=== PATIENT | male | born 1945 | race Caucasian/White ===

== ENCOUNTER → 2016-06-02 | Day surgery (SDC) | payer MEDICARE ==
[~2016-06-02] VITALS: Ht 177.8 cm; Wt 93.0 kg
[~2016-06-02] MED LIST: BUPIVACAINE/EPIN 0.25% 30 ML VIAL As Ordered ONE; BUPIVACAINE/EPIN 0.25% 30 ML VIAL XX ONE; FLOM5CAP PO; GLYCOPYRROLATE INJ 0.2 MG/ML 2 ML VIAL As Ordered ONE; JANU100T PO; KETOROLAC 60 MG/2 ML VIAL (J1885) As Ordered ONE; LEVO50TA5 PO; LIDOCAINE 2% INJ 100 MG/5 ML SDV (FOR ANES.) As Ordered ONE; LISI10TA4 PO; LR 1,000 ML IV SCH; LevoFLOXacin 500 MG in APPROPRIATE DILUENT 1 EA IV ONE; METF500T4 PO; METOCLOPRAMIDE INJ 10MG/2ML VIAL (J2765) As Ordered ONE; MIDAZOLAM INJ 2 MG/2 ML VIAL (J2250) As Ordered ONE; MORPHINE 10 MG/ML 1ML VIAL IV PRN; MORPHINE 2 MG/ML 1ML SYRINGE IV PRN; NEOSTIGMINE 1MG/ML 5 ML SYRINGE (J2710) As Ordered ONE; NORCO, ANEXSIA 5/325MG TABLET (HYDROcodone/ACETAMINOPHEN) As Ordered ONE; NORCO, ANEXSIA 5/325MG TABLET (HYDROcodone/ACETAMINOPHEN) PO PRN; ONDANSETRON 4MG/2ML VIAL (J2405) As Ordered ONE; ONDANSETRON 4MG/2ML VIAL (J2405) IV PRN; PRIL20CA9 PO; PROPOFOL 200 MG/20 ML VIAL As Ordered ONE; ROCURONIUM BROMIDE 50 MG/5 ML VIAL As Ordered ONE; fentaNYL 100 MCG/2 ML INJECTION (J3010) As Ordered ONE; fentaNYL 100 MCG/2 ML INJECTION (J3010) IV PRN; fentaNYL 250 MCG/5 ML INJECTION (J3010) As Ordered ONE
--- NOTE | 2016-06-02 11:55 | RO ---
DATE OF PROCEDURE: 06/01/2016 PREPROCEDURE DIAGNOSIS: Left inguinal hernia. POSTPROCEDURE DIAGNOSIS: Indirect left inguinal hernia. PROCEDURE: Laparoscopic left inguinal hernia repair with 3D Max mesh (TEP). SURGEON: Dr. José Antonio Powers. EYEGLASS MAKER: ANESTHESIA: General endotracheal anesthesia. ESTIMATED BLOOD LOSS: Minimal. FLUIDS: Crystalloid. DESCRIPTION OF PROCEDURE: The patient was brought to the operating room and was given general anesthesia. After adequate anesthesia and preoperative antibiotics were given the patient was prepped and draped in the usual sterile fashion. Next, a periumbilical incision was made with the skin knife. Blunt dissection was carried down to the fascia. The fascia was incised longitudinally with electrocautery and then finger palliation posterior to the rectus muscle was performed on the rectums muscle fascia using blunt dissection. The balloon dissector was placed in the preperitoneal space and dilated under direct visualization. The epigastric were seen up bilaterally. Then the stationary balloon was placed inferior to the umbilicus. Next, the posterior aspect of the pubis was dissected out with the hook cautery revealing the posterior aspect of the pubis as well as Tai's on the left-hand side. The dissection lateral to the epigastric was performed using hook cautery up to the cord structures. The hernia was appreciated going down into the cord structures and this was grasped and mobilized of all surrounding structures. Eventually, the peritoneum was mobilized quite nicely in this area and eventually, it was mobilized off the cord structures medially as well as posteriorly where the vas dove down into the pelvis. This is where the peritoneum was followed. A good window/valley between the vessels and the bladder was created using hook cautery along this lose areolar plane and then a 3D Max mesh, medium was placed in the left inguinal area and tacked in a the Tai's ligament medially and the lateral border of pubis as well as the tail of the mesh and inferiorly along the rectus muscle. The preperitoneal space was desufflated under direct visualization revealing good hemostasis. Revealed the peritoneum in the appropriate position. All trocars were removed under direct visualization. 0 Vicryl was used to close the fascia at the umbilicus and #4-0 Vicryl was used to close the skin. Steri-Strips and a dry sterile dressing was applied and the patient was awakened and extubated, brought to the recovery room awake, alert, and hemodynamically stable. Sponge and needle counts were correct times two.
[2016-06-02 12:45] VITALS: BP 122/67
--- NOTE | 2016-06-03 23:01 | ECGEPIP ---
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
== END | disposition home or self-care (01) ==
LOC: M SDC 06:16
PROVIDERS: ATTEND Surgery
DX: K40.90 Unilateral inguinal hernia, without obstruction or gangrene, not specified as recurrent (principal); E11.9 Type 2 diabetes mellitus without complications; I10 Essential (primary) hypertension; E78.00 Pure hypercholesterolemia, unspecified; E03.9 Hypothyroidism, unspecified; K21.9 Gastro-esophageal reflux disease without esophagitis; M12.9 Arthropathy, unspecified; G47.33 Obstructive sleep apnea (adult) (pediatric); N40.0 Benign prostatic hyperplasia without lower urinary tract symptoms; Z88.1 Allergy status to other antibiotic agents; Z79.899 Other long term (current) drug therapy
CPT/HCPCS: 49650; 93005; C1781; J1885; J1956; J2250; J2405; J2710; J2765; J3010

== ENCOUNTER 2018-03-10 06:54 | Day surgery (SDC) | payer MEDICARE ==
[2018-03-10] MEDS ORDERED: NS 1,000 ML IV (07:30)
[2018-03-10] MEDS ORDERED: LIDOCAINE 2% INJ 100 MG/5 ML SDV (FOR ANES.) As Ordered (08:10)
[2018-03-10] MEDS ORDERED: fentaNYL 100 MCG/2 ML INJECTION (J3010) As Ordered (08:10)
[2018-03-10] MEDS ORDERED: PROPOFOL 500 MG/50 ML VIAL As Ordered (08:10)
== END 2018-03-10 09:54 | disposition home or self-care (01) ==
LOC: M OPP 06:54
DX: Z09 Encounter for follow-up examination after completed treatment for conditions other than malignant neoplasm (principal); Z86.010 Personal history of colon polyps; D12.5 Benign neoplasm of sigmoid colon; D12.4 Benign neoplasm of descending colon; D12.3 Benign neoplasm of transverse colon; D12.2 Benign neoplasm of ascending colon; K44.9 Diaphragmatic hernia without obstruction or gangrene; K22.2 Esophageal obstruction; K29.70 Gastritis, unspecified, without bleeding; K31.9 Disease of stomach and duodenum, unspecified; R13.10 Dysphagia, unspecified; I10 Essential (primary) hypertension; E11.9 Type 2 diabetes mellitus without complications; E03.9 Hypothyroidism, unspecified; G47.30 Sleep apnea, unspecified; K21.9 Gastro-esophageal reflux disease without esophagitis; N40.0 Benign prostatic hyperplasia without lower urinary tract symptoms; Z79.899 Other long term (current) drug therapy; Z88.8 Allergy status to other drugs, medicaments and biological substances
CPT/HCPCS: 45385

== ENCOUNTER → 2018-05-26 | Outpatient (REF) | payer MEDICARE ==
[~2018-05-26] MED LIST changes: -BUPIVACAINE/EPIN 0.25% 30 ML VIAL As Ordered ONE; -BUPIVACAINE/EPIN 0.25% 30 ML VIAL XX ONE; +FLOM0.4C39 PO; -FLOM5CAP PO; -GLYCOPYRROLATE INJ 0.2 MG/ML 2 ML VIAL As Ordered ONE; -KETOROLAC 60 MG/2 ML VIAL (J1885) As Ordered ONE; -LIDOCAINE 2% INJ 100 MG/5 ML SDV (FOR ANES.) As Ordered ONE; -LR 1,000 ML IV SCH; -LevoFLOXacin 500 MG in APPROPRIATE DILUENT 1 EA IV ONE; -METOCLOPRAMIDE INJ 10MG/2ML VIAL (J2765) As Ordered ONE; -MIDAZOLAM INJ 2 MG/2 ML VIAL (J2250) As Ordered ONE; -MORPHINE 10 MG/ML 1ML VIAL IV PRN; -MORPHINE 2 MG/ML 1ML SYRINGE IV PRN; -NEOSTIGMINE 1MG/ML 5 ML SYRINGE (J2710) As Ordered ONE; -NORCO, ANEXSIA 5/325MG TABLET (HYDROcodone/ACETAMINOPHEN) As Ordered ONE; -NORCO, ANEXSIA 5/325MG TABLET (HYDROcodone/ACETAMINOPHEN) PO PRN; +OMEP20CA3 PO; -ONDANSETRON 4MG/2ML VIAL (J2405) As Ordered ONE; -ONDANSETRON 4MG/2ML VIAL (J2405) IV PRN; -PROPOFOL 200 MG/20 ML VIAL As Ordered ONE; -ROCURONIUM BROMIDE 50 MG/5 ML VIAL As Ordered ONE; -fentaNYL 100 MCG/2 ML INJECTION (J3010) As Ordered ONE; -fentaNYL 100 MCG/2 ML INJECTION (J3010) IV PRN; -fentaNYL 250 MCG/5 ML INJECTION (J3010) As Ordered ONE
== END ==
LOC: M SFHCPLAZ 17:47
PROVIDERS: ATTEND Dermatology
DX: D22.39 Melanocytic nevi of other parts of face (principal); L57.8 Other skin changes due to chronic exposure to nonionizing radiation

== ENCOUNTER → 2019-01-25 | Outpatient (REF) | payer MEDICARE ==
[~2019-01-25] MED LIST changes: +METF-791 PO; -METF500T4 PO; -OMEP20CA3 PO; +OMEP20CA4 PO
[2019-01-25 13:46] LABS: INR 1.06; PROTHROMBIN TIME 13.6 SECONDS (11.8-14.0)
[2019-01-25 13:47] LABS: PARTIAL THROMBOPLASTIN TIME 29.5 SECONDS (25.0-38.4)
== END ==
LOC: M LAB REF 12:41
PROVIDERS: ATTEND Internal Medicine
DX: Z01.810 Encounter for preprocedural cardiovascular examination (principal); Z79.899 Other long term (current) drug therapy

== ENCOUNTER → 2020-07-31 | Outpatient (REF) | payer MEDICARE ==
[~2020-07-31] MED LIST changes: +LISI10TA22 PO; -LISI10TA4 PO; -METF-791 PO; +METF-838 PO; +OMEP1CAP73 PO; -OMEP20CA4 PO
== END ==
LOC: M LAB REF 12:07
PROVIDERS: ATTEND Internal Medicine
DX: N40.1 Benign prostatic hyperplasia with lower urinary tract symptoms (principal)

== ENCOUNTER → 2020-08-07 | Outpatient (REF) | payer MEDICARE | LOC: M LAB REF 11:53 | PROVIDERS: ATTEND Internal Medicine | DX: N40.1 Benign prostatic hyperplasia with lower urinary tract symptoms (principal) ==

== ENCOUNTER → 2021-01-30 | Outpatient (CLI) | payer MEDICARE ==
--- NOTE | 2021-01-31 17:24 | REP ---
INDICATION: PULMONARY NODULE. COMPARISON: Comparison is made with outside prior CT study dated September 16, 2020. This prior study showed pulmonary nodules in the right upper lobe and left lower lobe. TECHNIQUE: Helical scanning is acquired. 3 mm axial images are generated. Coronal and sagittal MPR and coronal MIP images are generated. 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 There is no evidence of pleural effusion or pericardial effusion. There is extensive vascular calcification along the distribution of the left coronary artery unchanged. No hilar or mediastinal mass or adenopathy is observed. In the upper abdomen there are bilateral renal cysts. No adrenal lesion is seen. A small sliding hiatal hernia is suspected. In the lung bryd, the previously noted right upper lobe nodule is again seen abutting the medial pleural surface of the right upper lobe in the right perihilar region. This measures 1.7 cm in greatest craniocaudal span on sagittal recon images by 1.6 cm in greatest transverse dimension. It is felt to be unchanged in the interval since the September 17, 2019 study. 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 There is a 2nd stable noncalcified pulmonary nodule in the lateral aspect of the left pleural angle in the left lower lobe. This is unchanged as well. There are 1 or 2 granulomatous calcifications in the lung byrd. There is linear fibrosis in the left lower lobe unchanged. No new pulmonary mass or nodule is seen. IMPRESSION: No change in the interval since September 16, 2020 in the 1.7 cm nodule in the right upper lobe or the 40.4 cm nodule in the left lower lobe. Consider follow-up CT study in 8-9 months. <Electronically signed by Suleman Hernandez > 01/31/21 0789
== END ==
LOC: M RAD 10:31
PROVIDERS: ATTEND Internal Medicine
DX: R91.1 Solitary pulmonary nodule (principal); N28.1 Cyst of kidney, acquired; I25.10 Atherosclerotic heart disease of native coronary artery without angina pectoris; R91.8 Other nonspecific abnormal finding of lung field; J84.10 Pulmonary fibrosis, unspecified

== ENCOUNTER → 2021-10-31 | Outpatient (CLI) | payer MEDICARE | LOC: M PLAIMG 12:14 | PROVIDERS: ATTEND Internal Medicine | DX: R91.8 Other nonspecific abnormal finding of lung field (principal); N28.1 Cyst of kidney, acquired ==

== ENCOUNTER → 2023-11-24 | Outpatient (CLI) | payer MEDICARE | LOC: M RAD 09:02 | PROVIDERS: ATTEND Internal Medicine | DX: R91.8 Other nonspecific abnormal finding of lung field (principal); I25.10 Atherosclerotic heart disease of native coronary artery without angina pectoris; K44.9 Diaphragmatic hernia without obstruction or gangrene; N28.1 Cyst of kidney, acquired ==

== ENCOUNTER → 2024-07-20 | Outpatient (REF) | payer MEDICARE | LOC: M SFHCDERM 17:49 | PROVIDERS: ATTEND Physician Assistant | DX: C44.319 Basal cell carcinoma of skin of other parts of face (principal) ==